=== PATIENT | male | born 1995 | race Caucasian/White ===

== ENCOUNTER 2025-08-24 18:49 | Emergency (ER) | payer BC, SELFPAY ==
--- NOTE | ~2025-08-24 | XR_ITS ---
EXAMINATION: XR chest 2V DATE: 08/24/2025 19:34 INDICATION: Cough. TECHNIQUE: Frontal and lateral views of the chest were obtained. COMPARISON: None. FINDINGS: Heart size is normal. Lungs are clear of acute processes. IMPRESSION: 1. No acute findings. Reviewed, dictated and finalized at location T. TERY MANAGER IMPRESSION: 1. No acute findings.
[2025-08-24 19:04] VITALS: BP 135/73; PULSE 93; RESP 16; TEMP 36.5; O2SAT 100
--- NOTE | 2025-08-24 19:21 | ED.GENADULT ---
HPI - General Adult General Chief complaint: Chest Pain Stated complaint: R CHEST PAIN Time Seen by Provider: 08/24/25 19:21 Source: patient, RN notes reviewed and old records reviewed Mode of arrival: ambulatory Limitations: no limitations History of Present Illness HPI narrative: 29-year-old male presents to the [facility] requesting a chest x-ray. Patient states that he has had right-sided chest pain for over a year. Had seen a primary care provider approximately 1 year ago, blood work was done, ordered chest x-ray which was never done. Unknown results, patient not part of [facility] Related Data Home Medications ?Medication ?Instructions ?Recorded ?Confirmed ?Last Taken ?Type No Home Medications 08/24/25 08/24/25 Unknown History Allergies Allergy/AdvReac Type Severity Reaction Status Date / Time No Known Allergies Allergy Verified 08/24/25 19:17 Review of Systems Review of Systems: All systems reviewed & are unremarkable except as noted in HPI and below Constitutional: Constitutional: Reports no additional constitutional complaints ENT: Reports system reviewed and no additional complaints, except as documented Cardiovascular: Cardiovascular: Reports no additional cardiovascular complaints, Denies chest pain and Denies dyspnea Respiratory: Respiratory: Reports no additional respiratory complaints, Denies chest congestion, Denies cough and Denies dyspnea Musculoskeletal: Musculoskeletal: Reports as per HPI Integumentary/Breasts: Skin/Breast: Reports system reviewed and no additional complaints, except as docu PMFSH Comments At the time of my signature, I reviewed and agree with the nursing past medical, surgical, social, and family history. There is no relevant family history pertinent to the patient complaint. Exam Const: General: cooperative, healthy appearing, comfortable, no acute distress, well developed, alert and well nourished Nutritional Appearance: well nourished Orientation/consciousness: patient oriented x3 Limitations: no limitations HENMT: Head: normal to inspection Eyes: General: appearance normal, both eyes and all related structures Alignment and Position: alignment normal Neck: Neck: normal visual inspection, full ROM, no lymphadenopathy and no meningeal signs Chest: Chest palpation & inspection: normal inspection of the chest Resp: Effort & Inspection: normal respiratory effort and able to speak in complete sentences Auscultation: clear to auscultation bilaterally, no crackles, no rales, no rhonchi and no wheezes Cardio: Rate: regular rate Skin: General skin exam: normal color and no rashes or lesions noted Neuro: General: patient oriented x3, gait normal, moves all extremities and no meningeal signs Cognition (Neuro): normal cognition Speech: normal speech Gait exam (Neuro): Normal gait present Extrem: General: normal to inspection, full ROM, capillary refill normal and normal gait Psych: Appearance: grossly normal and well kempt Mental Status: mental status grossly normal Speech and movement: Normal speech and movement present and Clear speech present Affect: normal affect Attitude: cooperative Course Course Level of Care: Express Care Visit Vital Signs Vital signs: Vital Signs Temperature 97.7 F 08/24/25 19:04 Pulse Rate 93 08/24/25 19:04 Respiratory Rate 16 08/24/25 19:04 Blood Pressure 135/73 08/24/25 19:04 Pulse Oximetry 100 08/24/25 19:04 Temperature 97.7 F 08/24/25 19:04 Pulse Rate 93 08/24/25 19:04 Respiratory Rate 16 08/24/25 19:04 Blood Pressure 135/73 08/24/25 19:04 Pulse Oximetry 100 08/24/25 19:04 Reviewed Medical Decision Making MDM Narrative Medical decision making narrative: Patient sitting comfortably in exam room. Nontoxic, vitals stable. Patient in no acute distress patient presents with right-sided chest pain x1 year that have been intermittent. States he notices it when he sitting doing nothing and watching TV. Nothing noted while he is busy. Does have some tenderness intermittently costochondritis border right side. Chest x-ray negative Discharge instructions reviewed with patient, as well as provided in writing per nursing staff. The instructions also include specific and strict return/GO TO THE ER as well as f/u information. All questions have been answered, and the patient deny any further questions with discharge and discharge plan. Some parts of this dictation were generated by voice recognition software and may contain typographical and/or grammatical inaccuracies. Medical Records Medical records reviewed: Yes I reviewed the external patient's medical records. Vital Signs Vital Signs: Vital Signs Temperature 97.7 F 08/24/25 19:04 Pulse Rate 93 08/24/25 19:04 Respiratory Rate 16 08/24/25 19:04 Blood Pressure 135/73 08/24/25 19:04 Pulse Oximetry 100 08/24/25 19:04 Temperature 97.7 F 08/24/25 19:04 Pulse Rate 93 08/24/25 19:04 Respiratory Rate 16 08/24/25 19:04 Blood Pressure 135/73 08/24/25 19:04 Pulse Oximetry 100 08/24/25 19:04 Reviewed Lab Data Lab results reviewed: Yes I reviewed the patient's lab results. Labs: Reviewed Imaging Data Radiologist's impression: EXAMINATION: XR chest 2V DATE: 08/24/2025 19:34 INDICATION: Cough. TECHNIQUE: Frontal and lateral views of the chest were obtained. COMPARISON: None. FINDINGS: Heart size is normal. Lungs are clear of acute processes. IMPRESSION: 1. No acute findings. Critical Care Time Critical Care Time Critical Care Time: No Discharge Plan Discharge Clinical Impression: Right-sided chest pain Patient Disposition: Home Condition: Stable Instructions: Chest Pain (ED), Costochondritis (ED) Additional Instructions: your chest x-ray showed no acute findings follow-up with your primary care provider a list of providers have been given to you for [facility] [address] If you are having a hard time finding a physician please call our [facility] liaison at [phone]. Patient Language: Welsh Prescriptions: No Action No Home Medications Follow-up/Referrals: Katherine Ma DO [Physician, Family Practice] PHYSICIAN,[employer] [Primary Care Provider, Internal Medicine] Time of Disposition: 19:43
== END 2025-08-24 19:50 | disposition home or self-care (01) ==
PROVIDERS: Emergency Provider Nurse Practitioner
DX: R07.89 Other chest pain (principal)
CPT/HCPCS: 71046; 99203; G0463